=== PATIENT | female | born 1995 | race Caucasian/White ===

== ENCOUNTER 2016-07-23 21:12 | Emergency (ER) | payer BC ==
--- NOTE | 2016-07-23 21:28 | EDM.PDOC ---
ED HPI GENERAL MEDICAL PROBLEM - General Chief Complaint: Abdominal Pain Stated Complaint: STOMACH PAIN Time Seen by Provider: 07/23/16 21:28 Source of Information: Reports: Patient History Limitations: Reports: No Limitations - History of Present Illness INITIAL COMMENTS - FREE TEXT/NARRATIVE: 21 yo F who presents to the ER with severe abdominal pain that started this afternoon and got progressively worse. Rates abdominal pain as 8/10. Pain is mainly on the Lower abdomen and radiates to the back and buttock area. No nausea but vomited once. Describes pain as sharp and constant with no obvious aggravating or relieving factors. No urinary symptoms. Had a bowel movement earlier today. Presented to the ER on account of worsening of symptoms Onset: Today Onset Date: 07/23/16 Onset Time: 16:00 Duration: Hour(s):, Getting Worse Location: Reports: Abdomen, Back Quality: Reports: Ache, Sharp, Stabbing Severity: Severe Associated Symptoms: Reports: Nausea/Vomiting - Related Data Allergies Allergy/AdvReac Type Severity Reaction Status Date / Time nickel Allergy Rash Verified 07/23/16 21:20 Home Meds: Home Meds Ibuprofen 600 mg PO Q6HR PRN #30 tablet 08/23/13 [Rx] Ibuprofen [Advil] 400 mg PO Q6H PRN 08/23/13 [History] DULoxetine HCl [Cymbalta] 20 mg PO DAILY 07/23/16 [History] Hydrocodone/Acetaminophen [Carson 5-325 Tablet] 1 each PO Q6H PRN #20 tablet [Rx] Past Medical History - Past Health History Medical/Surgical History: Denies Medical/Surgical History Other Cardiovascular History: chest pain Social & Family History - Tobacco Use Smoking Status *Q: Current Every Day Smoker Years of Tobacco use: 2 Used Tobacco, but Quit: No Second Hand Smoke Exposure: No - Alcohol Use Days Per Week of Alcohol Use: 0 Number of Drinks Per Day: 1 Total Drinks Per Week: 0 - Recreational Drug Use Recreational Drug Use: No ED ROS GENERAL - Review of Systems Review Of Systems: ROS reveals no pertinent complaints other than HPI. ED EXAM, GI/ABD - Physical Exam Exam: See Below Exam Limited By: No Limitations General Appearance: Alert, WD/WN, No Apparent Distress Eyes: Bilateral: EOMI Ears: Normal External Exam, Normal Canal, Hearing Grossly Normal, Normal TMs Throat/Mouth: Normal Inspection, Normal Lips, Normal Teeth, Normal Oropharynx Head: Atraumatic, Normocephalic Neck: Normal Inspection, Supple, Non-Tender Respiratory/Chest: No Respiratory Distress, Lungs Clear, Normal Breath Sounds, No Accessory Muscle Use Cardiovascular: Normal Peripheral Pulses, Regular Rate, Rhythm, No Edema GI/Abdominal: Normal Bowel Sounds, Soft, No Organomegaly, No Distention, No Abnormal Bruit, Tenderness, Other (Tenderness Lower abdomen and both Flanks) (Female) Exam: Normal External Exam, Normal Speculum Exam Extremities: Normal Inspection, Normal Range of Motion, Non-Tender, Normal Capillary Refill Neurological: Alert, Oriented, CN II-XII Intact, Normal Cognition, Normal Gait Psychiatric: Normal Affect, Normal Mood Skin Exam: Warm, Dry, Intact, Normal Color, No Rash Lymphatic: No Adenopathy Course - Vital Signs Last Recorded V/S: Last Vital Signs Temp 36.8 C 07/23/16 21:24 Pulse 96 07/23/16 21:24 Resp 18 07/23/16 21:24 BP 118/67 07/23/16 21:24 Pulse Ox 96 07/23/16 21:24 - Orders/Labs/Meds Orders: Active Orders 24 hr Category Date Time Status Abdomen Pelvis w Cont [CT] Stat Exams 07/23/16 21:34 Taken LIPASE [REF] Stat Lab 07/23/16 21:50 Received Labs: Laboratory Tests 07/23/16 07/23/16 07/23/16 Range/Units 21:35 21:35 21:50 WBC 11.2 (4.5-12.0) X10-3/uL RBC 4.43 (3.23-5.20) x10(6)uL Hgb 13.7 (11.5-15.5) g/dL Hct 41.0 (30.0-51.3) % MCV 92.5 (80-96) fL MCH 30.9 (27.7-33.6) pg MCHC 33.4 (32.2-35.4) g/dL RDW 12.0 (11.5-15.5) % Plt Count 254 (125-369) X10(3)uL Sodium (135-145) mmol/L Potassium (3.5-5.3) mmol/L Chloride (100-110) mmol/L Carbon Dioxide (23-29) mmol/L BUN (5-20) mg/dL Creatinine (0.6-1.3) mg/dL Est Cr Clr Drug Dosing Estimated GFR (MDRD) (>60) BUN/Creatinine Ratio (9-20) Glucose (80-116) mg/dL Calcium (8.6-10.2) mg/dL Total Bilirubin (0.1-1.3) mg/dL AST (5-27) IU/L ALT (14-26) IU/L Alkaline Phosphatase (56-112) IU/L Total Protein (6.0-8.0) g/dL Albumin (3.5-5.2) g/dL Globulin g/dL Albumin/Globulin Ratio Amylase (28-100) U/L Urine Color Yellow (YELLOW) Urine Appearance Clear (CLEAR) Urine pH 8.0 H (5.0-6.5) Ur Specific [place] 1.015 (1.010-1.025) Urine Protein Negative (NEGATIVE) mg/dL Urine Glucose (UA) Normal (NEGATIVE) mg/dL Urine Ketones Negative (NEGATIVE) mg/dL Urine Occult Blood Negative (NEGATIVE) Urine Nitrite Negative (NEGATIVE) Urine Bilirubin Negative (NEGATIVE) Urine Urobilinogen Normal (NEGATIVE) mg/dL Ur Leukocyte Esterase Negative (NEGATIVE) Urine HCG, Qual Negative (NEGATIVE) 07/23/16 Range/Units 21:50 WBC (4.5-12.0) X10-3/uL RBC (3.23-5.20) x10(6)uL Hgb (11.5-15.5) g/dL Hct (30.0-51.3) % MCV (80-96) fL MCH (27.7-33.6) pg MCHC (32.2-35.4) g/dL RDW (11.5-15.5) % Plt Count (125-369) X10(3)uL Sodium 140 (135-145) mmol/L Potassium 3.6 (3.5-5.3) mmol/L Chloride 107 (100-110) mmol/L Carbon Dioxide 27 (23-29) mmol/L BUN 11 (5-20) mg/dL Creatinine 0.7 (0.6-1.3) mg/dL Est Cr Clr Drug Dosing TNP Estimated GFR (MDRD) > 60 (>60) BUN/Creatinine Ratio 15.7 (9-20) Glucose 87 (80-116) mg/dL Calcium 9.3 (8.6-10.2) mg/dL Total Bilirubin 0.5 (0.1-1.3) mg/dL AST 22 D (5-27) IU/L ALT 29 H D (14-26) IU/L Alkaline Phosphatase 57 (56-112) IU/L Total Protein 7.2 (6.0-8.0) g/dL Albumin 4.4 (3.5-5.2) g/dL Globulin 2.8 g/dL Albumin/Globulin Ratio 1.6 Amylase 65 (28-100) U/L Urine Color (YELLOW) Urine Appearance (CLEAR) Urine pH (5.0-6.5) Ur Specific [place] (1.010-1.025) Urine Protein (NEGATIVE) mg/dL Urine Glucose (UA) (NEGATIVE) mg/dL Urine Ketones (NEGATIVE) mg/dL Urine Occult Blood (NEGATIVE) Urine Nitrite (NEGATIVE) Urine Bilirubin (NEGATIVE) Urine Urobilinogen (NEGATIVE) mg/dL Ur Leukocyte Esterase (NEGATIVE) Urine HCG, Qual (NEGATIVE) Meds: Medications Discontinued Medications Generic Name Dose Route Start Last Admin Trade Name Freq PRN Reason Stop Dose Admin Sodium Chloride 1,000 mls @ 1,000 mls/hr 07/23/16 21:35 07/23/16 22:01 Normal Saline IV 07/23/16 22:34 1,000 mls/hr .BOLUS ONE Administration Iopamidol 75 ml 07/23/16 22:36 07/23/16 23:30 Isovue-370 (76%) IV 07/23/16 22:37 67 ml ASDIRECTED ONE Administration Morphine Sulfate 4 mg 07/23/16 21:37 07/23/16 22:07 Morphine IVPUSH 07/23/16 21:38 4 mg ONETIME ONE Administration Ondansetron HCl 4 mg 07/23/16 21:36 07/23/16 22:07 Zofran IVPUSH 07/23/16 21:37 4 mg ONETIME ONE Administration Departure - Departure Time of Disposition: 00:22 Disposition: Home, Self-Care 01 Clinical Impression: Abdominal pain Qualifiers: Abdominal location: lower abdomen, unspecified Qualified Code(s): R10.30 - Lower abdominal pain, unspecified - Discharge Information Prescriptions: Hydrocodone/Acetaminophen [Carson 5-325 Tablet] 1 each PO Q6H PRN #20 tablet PRN Reason: Pain Instructions: Abdominal Pain, Adult, [id number] Referrals: PCP,Not In Area [Primary Care Provider] - Forms: ED Department Discharge Additional Instructions: Follow with PCP Delfina for pain Return if ymptoms worsen Call your Physician or Return to Emergency Department if: * Your condition worsens in any way. * You develop fever greater than 100.4. * You have vomitting that does not stop with medications. * You have pain that is not controlled with medications. - Problem List Review Problem List Initiated/Reviewed/Updated: Yes - My Orders Last 24 Hours: My Active Orders 07/23/16 21:34 Abdomen Pelvis w Cont [CT] Stat 07/23/16 21:50 LIPASE [REF] Stat - Assessment/Plan Last 24 Hours: My Active Orders 07/23/16 21:34 Abdomen Pelvis w Cont [CT] Stat 07/23/16 21:50 LIPASE [REF] Stat
[2016-07-23] MEDS ORDERED: Sodium Chloride 0.9% 1,000 ML IV ONE (21:35)
[2016-07-23] MEDS ORDERED: Ondansetron 4 MG/2 ML SDV IVPUSH ONE (21:36)
[2016-07-23] MEDS ORDERED: Morphine 4 MG/ML Syringe IVPUSH ONE (21:37)
[2016-07-23] MEDS ORDERED: Iopamidol 755 Mg/ML 75 ML Bottle IV ONE (22:36)
[2016-07-24 00:44] VITALS: BP 120/68
== END 2016-07-24 00:35 | disposition home or self-care (01) ==
LOC: FB.ED 21:12
DX: R10.30 Lower abdominal pain, unspecified (principal); F17.200 Nicotine dependence, unspecified, uncomplicated; Z79.899 Other long term (current) drug therapy
CPT/HCPCS: 36415; 74177; 80053; 81003; 81025; 82150; 83690; 85027; 96361; 96374; 96375; 99284; J2270; J2405; J7040; Q9967

== ENCOUNTER 2016-09-12 20:29 | Emergency (ER) | payer BC ==
[2016-09-12 20:46] VITALS: BP 126/76
--- NOTE | 2016-09-12 20:53 | EDM.PDOC ---
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 She had an pelvic US today and was told "there is no baby". LNMP was 6 weeks ago. No N/V/D, no dizziness, no acute medical issues. No vaginal bleed/spotting. Onset: Today Onset Date: 09/12/16 Onset Time: 08:00 Duration: Day(s):, Other (no phsical complains) Location: Reports: Pelvis - Related Data Allergies Allergy/AdvReac Type Severity Reaction Status Date / Time nickel Allergy Rash Verified 09/12/16 20:37 Home Meds: Home Meds Ibuprofen 600 mg PO Q6HR PRN #30 tablet 08/23/13 [Rx] Ibuprofen [Advil] 400 mg PO Q6H PRN 08/23/13 [History] Past Medical History - Past Health History Medical/Surgical History: Denies Medical/Surgical History Other Cardiovascular History: chest pain Social & Family History - Tobacco Use Smoking Status *Q: Current Every Day Smoker Years of Tobacco use: 2 Packs/Tins Daily: 1 Used Tobacco, but Quit: No Second Hand Smoke Exposure: Yes - Caffeine Use Caffeine Use: Reports: None - Alcohol Use Days Per Week of Alcohol Use: 0 Number of Drinks Per Day: 1 Total Drinks Per Week: 0 - Recreational Drug Use Recreational Drug Use: No ED ROS GENERAL - Review of Systems Review Of Systems: See Below Constitutional: Reports: No Symptoms HEENT: Reports: No Symptoms Respiratory: Reports: No Symptoms Cardiovascular: Reports: No Symptoms Endocrine: Reports: No Symptoms GI/Abdominal: Reports: No Symptoms : Reports: No Symptoms Musculoskeletal: Reports: No Symptoms Skin: Reports: No Symptoms Neurological: Reports: No Symptoms Psychiatric: Reports: No Symptoms Hematologic/Lymphatic: Reports: No Symptoms Immunologic: Reports: No Symptoms ED EXAM - Physical Exam Exam: See Below Exam Limited By: No Limitations General Appearance: Alert, WD/WN, No Apparent Distress Eye Exam: Bilateral Eye: Normal Inspection Ears: Normal External Exam Nose: Normal Inspection Throat/Mouth: Normal Inspection, Normal Lips Head: Atraumatic, Normocephalic Neck: Normal Inspection, Supple, Non-Tender Respiratory/Chest: No Respiratory Distress, Lungs Clear, Normal Breath Sounds Cardiovascular: Normal Peripheral Pulses, Regular Rate, Rhythm, No Edema GI/Abdominal Exam: Normal Bowel Sounds, Soft, Non-Tender, No Organomegaly Rectal Exam: Deferred (Female) Exam: Other (not indicated, no symptoms) Back Exam: Normal Inspection, Full Range of Motion Extremities: Normal Inspection, Normal Range of Motion Neurological: Alert, Oriented, CN II-XII Intact, Normal Cognition Psychiatric: Normal Affect, Normal Mood Skin Exam: Warm, Dry, Intact, Normal Color, No Rash Lymphatic: No Adenopathy Course - Vital Signs Text/Narrative:: 21 years old w f [id number] came to the ed because her Urine test was twice positive - clinc in [facility]. She had an pelvic US today and was told "there is no baby". LNMP was 6 weeks ago. No N/V/D, no dizziness, no acute medical issues. PE: WNWD w f NAD Labs: HCG test 3949 Impression: Pos prenancy test Plan: pt was d/c'd with instructions Last Recorded V/S: Last Vital Signs Temp 36.2 C 09/12/16 20:38 Pulse 86 09/12/16 20:38 Resp 18 09/12/16 20:38 BP 126/76 09/12/16 20:38 Pulse Ox 100 09/12/16 20:38 - Orders/Labs/Meds Labs: Laboratory Tests 09/12/16 Range/Units 20:45 HCG, Quant 3935 (2.0 - ) mIU/mL Departure - Departure Time of Disposition: 21:46 Disposition: Home, Self-Care 01 Condition: Good Clinical Impression: test performed, confirmed - Discharge Information Referrals: Keyur Lopez MD [Primary Care Provider] - Forms: ED Department Discharge Additional Instructions: Please repeat the quantitative HCG in 4 days, please come back if any pain, bleeding etc occurs.
== END 2016-09-12 21:52 | disposition home or self-care (01) ==
LOC: FB.ED 20:29
DX: Z32.01 Encounter for pregnancy test, result positive (principal); F17.210 Nicotine dependence, cigarettes, uncomplicated
CPT/HCPCS: 36415; 84702; 99282

== ENCOUNTER 2016-12-14 04:39 | Emergency (ER) | payer BC ==
--- NOTE | 2016-12-14 05:37 | EDM.PDOC ---
ED HPI GENERAL MEDICAL PROBLEM - General Chief Complaint: ENT Problem Stated Complaint: SORE THROAT Time Seen by Provider: 12/14/16 04:40 Source of Information: Reports: Patient History Limitations: Reports: No Limitations - History of Present Illness INITIAL COMMENTS - FREE TEXT/NARRATIVE: 21 years old w f -5 months -came to the ed because of a sore throat since . Pt still smokes (little). No F/C/N/V. She has nasal congestion as well. No other acute medical issues. BP 106/61 Pulse 94 Temp 98.2 RR 16 Pulse ox 100% Onset Date: 12/11/16 Onset Time: 07:00 Duration: Day(s): Location: Reports: Face Quality: Reports: Other (sore throat) Severity: Mild Improves with: Reports: Heat Therapy Worsens with: Reports: Cold Therapy Associated Symptoms: Reports: Other (running nose) Treatments MANAGER PEST: Reports: Acetaminophen throat and neck Pain Score (Numeric/FACES): 9 - Related Data Allergies Allergy/AdvReac Type Severity Reaction Status Date / Time nickel Allergy Rash Verified 12/14/16 04:49 Home Meds: Home Meds Amoxicillin/Potassium Clav [Augmentin 875-125 Tablet] 1 each PO BID #20 tablet 12/14/16 [Rx] Past Medical History - Past Health History Medical/Surgical History: Denies Medical/Surgical History Other Cardiovascular History: 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: Psychiatric History: Reports: Anxiety, Depression Social & Family History - Family History Family Medical History: Noncontributory - Tobacco Use Smoking Status *Q: Current Every Day Smoker Years of Tobacco use: 6 Packs/Tins Daily: 0.5 Used Tobacco, but Quit: No Second Hand Smoke Exposure: Yes - Caffeine Use Caffeine Use: Reports: Soda - Alcohol Use Days Per Week of Alcohol Use: 0 Number of Drinks Per Day: 1 Total Drinks Per Week: 0 - Recreational Drug Use Recreational Drug Use: No ED ROS ENT - Review of Systems Review Of Systems: See Below Constitutional: Reports: No Symptoms HEENT: Reports: Throat Pain, Other (nasal congestion) Respiratory: Reports: No Symptoms Cardiovascular: Reports: No Symptoms Endocrine: Reports: No Symptoms GI/Abdominal: Reports: No Symptoms : Reports: No Symptoms Musculoskeletal: Reports: No Symptoms Skin: Reports: No Symptoms Neurological: Reports: No Symptoms Psychiatric: Reports: No Symptoms Hematologic/Lymphatic: Reports: No Symptoms Immunologic: Reports: No Symptoms ED EXAM, ENT - Physical Exam Exam: See Below Exam Limited By: No Limitations General Appearance: Alert, WD/WN, No Apparent Distress Eye Exam: Bilateral Eye: Normal Inspection Ears: Normal External Exam Nose: Clear Rhinorrhea Mouth/Throat: Throat Pain, Tonsillar Erythema Head: Atraumatic, Normocephalic Neck: Normal Inspection, Supple, Non-Tender, Full Range of Motion Respiratory/Chest: No Respiratory Distress, Lungs Clear Cardiovascular: Normal Peripheral Pulses, Regular Rate, Rhythm, No Edema, No Gallop GI/Abdominal: Normal Bowel Sounds, Soft, Non-Tender (Female) Exam: Deferred Rectal (Female) Exam: Deferred Back: Normal Inspection Extremities: Normal Inspection, Normal Range of Motion Neurological: Alert, Oriented, CN II-XII Intact, Normal Cognition, Normal Gait Psychiatric: Normal Affect Skin: Warm, Dry, Intact, Normal Color Lymphatic: No Adenopathy Course - Vital Signs Text/Narrative:: 21 years old w f -5 months -came to the ed because of a sore throat since . Pt still smokes (little). No F/C/N/V. She has nasal congestion as well. No other acute medical issues. BP 106/61 Pulse 94 Temp 98.2 RR 16 Pulse ox 100% PE: Pharyngitis, Airway open Labs: Strep pharyngitis test neg. Cx pendinh Impression: Pharyngitis, Strep presumed Tx: Augmentin Plan: D/C with instructions Last Recorded V/S: Last Vital Signs Temp 36.8 C 12/14/16 05:52 Pulse 86 12/14/16 05:52 Resp 16 12/14/16 05:52 BP 105/72 12/14/16 05:52 Pulse Ox 100 12/14/16 05:52 - Orders/Labs/Meds Orders: Active Orders 24 hr Category Date Time Status CULTURE STREP A CONFIRMATION [] Stat Lab 12/14/16 04:55 Results STREP SCRN A RAPID W CULT CONF [] Stat Lab 12/14/16 04:55 Results Meds: Medications Discontinued Medications Generic Name Dose Route Start Last Admin Trade Name Freq PRN Reason Stop Dose Admin Amoxicillin/Clavulanate Potassium 1 tab 12/14/16 05:40 12/14/16 05:50 Augmentin 875 Mg/125 Mg PO 12/14/16 05:41 1 tab ONETIME ONE Administration Departure - Departure Time of Disposition: 05:37 Disposition: Home, Self-Care 01 Condition: Good Clinical Impression: Nasal congestion, Strep pharyngitis Qualifiers: Weeks of gestation: 20 weeks Qualified Code(s): Z3A.20 - 20 weeks gestation of - Discharge Information Prescriptions: Amoxicillin/Potassium Clav [Augmentin 875-125 Tablet] 1 each PO BID #20 tablet Instructions: Sore Throat, [id number] Referrals: Keyur Lopez MD [Primary Care Provider] - Forms: ED Department Discharge Additional Instructions: Presumed Strep Pharyngitis, Lab results are pending. Please apply salt water gurgling, Tylenol 650 mg every 4 hours, please drink warm milk, tea, water for next 4-5 days only. Please no coffee. Please do not use any tobacco. Please use Afrin for nasal congestion, please f/u, come back if your symptoms get worse acutely. - My Orders Last 24 Hours: My Active Orders 12/14/16 04:55 CULTURE STREP A CONFIRMATION [] Stat STREP SCRN A RAPID W CULT CONF [] Stat - Assessment/Plan Last 24 Hours: My Active Orders 12/14/16 04:55 CULTURE STREP A CONFIRMATION [] Stat STREP SCRN A RAPID W CULT CONF [] Stat
[2016-12-14] MEDS ORDERED: Amoxicillin/Clavulanate K 875-125 MG Tab PO ONE (05:40)
[2016-12-14 05:54] VITALS: BP 105/72
== END 2016-12-14 05:53 | disposition home or self-care (01) ==
LOC: FB.ED 04:39
DX: O99.512 Diseases of the respiratory system complicating pregnancy, second trimester (principal); J02.0 Streptococcal pharyngitis; O99.332 Smoking (tobacco) complicating pregnancy, second trimester; F17.210 Nicotine dependence, cigarettes, uncomplicated; Z3A.20 20 weeks gestation of pregnancy
CPT/HCPCS: 87081; 87430; 99283; A9270

== ENCOUNTER 2017-05-11 06:35 | Inpatient (IN) | payer BC ==
[2017-05-11] MEDS ORDERED: Misoprostol 25 MCG (1/4 of 100 MCG) Tab ONE (07:25)
[2017-05-11] MEDS ORDERED: Misoprostol 25 MCG (1/4 of 100 MCG) Tab VAG ONE (07:29)
[2017-05-11] MEDS ORDERED: Ampicillin 2 GM in Sodium Chloride 0.9% 100 ML IV ONE (11:13)
[2017-05-11] MEDS ORDERED: Naloxone 0.4 MG/ML SDV ONE (13:48)
[2017-05-11] MEDS ORDERED: ePHEDrine 50 MG/ML SDV ONE (13:49)
[2017-05-11] MEDS ORDERED: ePHEDrine 50 MG/ML SDV IVPUSH PRN (14:48)
[2017-05-11] MEDS ORDERED: hydrOXYzine HCl 50 MG/ML SDV IM PRN ×2 (14:48)
[2017-05-11] MEDS ORDERED: Naloxone 0.4 MG/ML SDV IVPUSH PRN (14:48)
[2017-05-11] MEDS ORDERED: Promethazine 25 MG/ML SDV IV PRN (14:48)
[2017-05-11] MEDS ORDERED: diphenhydrAMINE 50 MG/ML SDV IVPUSH PRN (14:48)
[2017-05-11] MEDS ORDERED: Naloxone 0.4 MG in Sodium Chloride 0.9% 100 ML IV PRN (14:48)
[2017-05-11] MEDS ORDERED: Ondansetron 4 MG/2 ML SDV IVPUSH PRN (14:49)
[2017-05-11] MEDS ORDERED: Lactated Ringers 1,000 ML IV SCH (15:00)
--- NOTE | 2017-05-11 19:33 | PCM.LDHP ---
L&D History of Present Illness - General Date of Service: 05/11/17 Admit Problem/Dx: Patient Status Order with Admit Dx/Problem 05/11/17 07:00 Admission Status [Patient Status] [ADT] Routine Admission Diagnosis/Problem Admission Diagnosis/Problem -related examination Source of Information: Patient, Old Records History Limitations: Reports: No Limitations - History of Present Illness Introduction:: Michelle is 22yrs.Admitted for induction of labor due to postdates. She is Group B Positive. H/o Operative vaginal delivery in her previous delivery in 2012.SAB x1. H/o Tobacco abuse. - Related Data Allergies/Adverse Reactions: Allergies Allergy/AdvReac Type Severity Reaction Status Date / Time nickel Allergy Rash Verified 05/11/17 12:29 Home Medications: Home Meds PNV95/Ferrous Fumarate/FA [ Tablet] 1 each PO DAILY 05/11/17 [History] Past Medical History - Past Health History Medical/Surgical History: Denies Medical/Surgical History Other Cardiovascular History: chest pain Respiratory History: Reports: Other (See Below) Other Respiratory History: smoker. 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 Psychiatric History: Reports: Anxiety, Depression Social & Family History - Family History Family Medical History: Noncontributory - Tobacco Use Smoking Status *Q: Current Every Day Smoker Years of Tobacco use: 6 Packs/Tins Daily: 0.5 Used Tobacco, but Quit: No Second Hand Smoke Exposure: No - Caffeine Use Caffeine Use: Reports: None - Alcohol Use Days Per Week of Alcohol Use: 0 Number of Drinks Per Day: 1 Total Drinks Per Week: 0 - Recreational Drug Use Recreational Drug Use: No H&P Review of Systems - Review of Systems: Review Of Systems: ROS reveals no pertinent complaints other than HPI. L&D Exam - Exam Exam: See Below - Vital Signs Vital Signs: Last Vital Signs Temp 98.3 F 05/11/17 18:14 Pulse 74 05/11/17 18:14 Resp 18 05/11/17 18:14 BP 125/57 L 05/11/17 18:14 Pulse Ox 100 05/11/17 18:14 Weight: 72.575 kg - OB Specific Contraction Duration (sec): 80-90 Contraction Frequency (min): 3-5 Contraction Intensity: Moderate Movement: Active Heart Rate (FHR) Variability: Moderate (6-25 bmp) - Ann Score Ann Score Cervix Position: Midposition Ann Score Consistency: Soft Ann Score Dilation: 1-2 cm Ann Score Infant's Station: -1 ,0 - Exam General: Alert, Oriented HEENT: PERRLA, Conjunctiva Clear, EACs Clear, EOMI, Hearing Intact, Mucosa Moist & [place], Nares Patent, Normal Nasal Septum, Posterior Pharynx Clear, TMs Clear Neck: Supple, Trachea Midline Lungs: Clear to Auscultation, Normal Respiratory Effort Cardiovascular: Regular Rate, Regular Rhythm GI/Abdominal Exam: Normal Bowel Sounds, Soft, Non-Tender, No Organomegaly, No Distention, No Abnormal Bruit, No Mass, Pelvis Stable Rectal Exam: Normal Exam, Normal Rectal Tone Genitourinary: Normal external exam, Normal bimanual exam, Normal speculum exam Back Exam: Normal Inspection, Full Range of Motion Extremities: Normal Inspection, Normal Range of Motion, Non-Tender, No Pedal Edema, Normal Capillary Refill Skin: Warm, Dry, Intact Neurological: Cranial Nerves Intact, Reflexes Equal Bilateral Psychiatric: Alert, Normal Affect, Normal Mood - Problem List (1) Elective induction of labor planned SNOMED Code(s): 759606513 ICD Code: SCQ7867 - Status: Acute Current Visit: Yes (2) Hx of delivery by vacuum extraction, currently SNOMED Code(s): 646384393 ICD Code: O09.299 - SUPRVSN OF PREG W POOR REPRODCTV OR OBSTET HISTORY, UNSP TRI Status: Acute Current Visit: Yes (3) Group beta Strep positive SNOMED Code(s): 0629810112790, 3474498218926 ICD Code: B95.1 - STREPTOCOCCUS, GROUP B, CAUSING DISEASES CLASSD ELSWHR Status: Acute Current Visit: Yes (4) SNOMED Code(s): 58085172 ICD Code: Z34.90 - ENCNTR FOR SUPRVSN OF NORMAL , UNSP, UNSP TRIMESTER Status: Acute Current Visit: No Qualifiers: Weeks of gestation: 40 weeks Qualified Code(s): Z3A.40 - 40 weeks gestation of (5) Tobacco abuse SNOMED Code(s): 998915041 ICD Code: Z72.0 - TOBACCO USE Status: Chronic Current Visit: Yes (6) Anxiety and depression SNOMED Code(s): 317858436 ICD Code: F41.9 - ANXIETY DISORDER, UNSPECIFIED; F32.9 - MAJOR DEPRESSIVE DISORDER, SINGLE EPISODE, UNSPECIFIED Status: Chronic Current Visit: Yes Problem List Initiated/Reviewed/Updated: Yes Orders Last 24hrs: Active Orders 24 hr Category Date Time Status Admission Status [Patient Status] [ADT] Routine ADT 05/11/17 07:00 Active Communication Order [RC] ASDIRECTED Care 05/11/17 17:38 Active Communication Order [RC] ASDIRECTED Care 05/11/17 17:38 Active Communication Order [RC] ASDIRECTED Care 05/11/17 17:38 Active Insert Urinary Catheter [OM.PC] Q24H Care 05/11/17 17:00 Ordered Notify Provider [RC] PRN Care 05/11/17 17:38 Active Notify Provider [RC] STAT Care 05/11/17 17:38 Active Urinary Catheter Assessment [RC] QSHIFT Care 05/11/17 18:16 Active Vital Signs [RC] PER UNIT ROUTINE Care 05/11/17 17:38 Active Ampicillin 1,000 mg Med 05/11/17 15:30 Active Sodium Chloride 0.9% [Normal Saline] 50 ml IV Q4H Lactated Ringers [Ringers, Lactated] 1,000 ml Med 05/11/17 15:00 Active IV ASDIRECTED Naloxone [Narcan] Med 05/11/17 14:48 Active 0.1 mg IVPUSH ASDIRECTED PRN Naloxone [Narcan] 0.4 mg Med 05/11/17 14:48 Active Sodium Chloride 0.9% [Normal Saline] 100 ml IV ASDIRECTED Ondansetron [Zofran] Med 05/11/17 14:49 Active 4 mg IVPUSH Q6H PRN Oxytocin/Normal Saline [Pitocin in NS 20 Units/1,000 ML Med 05/11/17 17:45 Active ] 20 unit in 1,000 ml IV TITRATE Promethazine [Phenergan] Med 05/11/17 14:48 Active 6.25 - 12.5 mg IV Q4H PRN diphenhydrAMINE [Benadryl] Med 05/11/17 14:48 Active 25 mg IVPUSH ASDIRECTED PRN ePHEDrine [ePHEDrine Sulfate] Med 05/11/17 14:48 Active 5 mg IVPUSH ASDIRECTED PRN hydrOXYzine HCl [Vistaril] Med 05/11/17 14:48 Active 0 mg IM Q4H PRN hydrOXYzine HCl [Vistaril] Med 05/11/17 14:48 Active 0 mg IM Q6H PRN Medication Orders Diphenhydramine HCl (Benadryl) 25 mg IVPUSH ASDIRECTED PRN PRN Reason: PRURITUS Ephedrine Sulfate (Ephedrine Sulfate) 5 mg IVPUSH ASDIRECTED PRN PRN Reason: HYPOTENSION Hydroxyzine HCl (Vistaril) 0 mg IM Q6H PRN PRN Reason: PRURITIS Hydroxyzine HCl (Vistaril) 0 mg IM Q4H PRN PRN Reason: N/V Ampicillin Sodium 1,000 mg/ (Sodium Chloride) 50 mls @ 100 mls/hr IV Q4H CHARO Last Admin: 05/11/17 15:34 Dose: 100 mls/hr Naloxone HCl 0.4 mg/ Sodium (Chloride) 101 mls @ 25 mls/hr IV ASDIRECTED PRN PRN Reason: PER ORDER OF ANESTHESIA Lactated Ringer's (Ringers, Lactated) 1,000 mls @ 125 mls/hr IV ASDIRECTED CHARO Oxytocin/Sodium Chloride (Pitocin In Ns 20 Units/1,000 Ml) 20 unit in 1,000 mls @ 6 mls/hr IV TITRATE CHARO; Protocol Last Admin: 05/11/17 17:59 Dose: 1 munits/min, 6 mls/hr Naloxone HCl (Narcan) 0.1 mg IVPUSH ASDIRECTED PRN PRN Reason: RESPIRATORY STATUS Ondansetron HCl (Zofran) 4 mg IVPUSH Q6H PRN PRN Reason: NAUSEA/VOMITING Promethazine HCl (Phenergan) 6.25 - 12.5 mg IV Q4H PRN PRN Reason: NAUSEA AND VOMITING Assessment/Plan Comment:: Continue induction by Pitocin. Continue Group B chemoprophylaxis.
[2017-05-11] MEDS ORDERED: Acetaminophen/HYDROcodone 325-5 MG Tab PO PRN (21:32)
[2017-05-12 00:09] VITALS: BP 129/68
[2017-05-12] MEDS: Ibuprofen 800 MG Tab PO PRN ×4 (02:45→16:34)
--- NOTE | 2017-05-12 08:53 | DEL ---
DATE OF DELIVERY: 05/11/2017 PREOPERATIVE DIAGNOSES: 40 weeks and 3 days intrauterine , here for induction of labor. POSTOPERATIVE DIAGNOSES: 40 weeks and 3 days intrauterine , here for induction of labor with delivery of a viable female infant at 2120 hours, 6 pounds, 13 ounces, scores of 9 and 9. PROCEDURE PERFORMED: Spontaneous vaginal delivery. ANESTHESIA: Epidural. INDICATIONS: This is a 22-year-old female, G3, P2 at 40 weeks and 3 days who was admitted for induction of labor. Please see history and physical for details. labs included negative HIV, rubella, VDRL, hepatitis B, but group B positive. PROCEDURE DETAILS: The patient was noted to be complete and pushing and was placed in the dorsal lithotomy position, prepped and draped in the usual sterile fashion for a vaginal delivery. The patient was noted to have epidural anesthesia. She was asked to push and the head delivered spontaneously in ROT position over an intact perineum. Nuchal cord x2 was encountered which was reduced and the baby was delivered as necessary. The infant was noted to have spontaneous cry and movement of all 4 extremities. The cord was cut and clamped x2 after about a minute, and the baby was placed [id number] on the maternal abdomen and chest. Then the baby was given to the waiting nursing personnel. Cord blood was obtained. The placenta was delivered intact by traction and the uterus was explored. 20 units of Pitocin were run through the IV as a bolus. Examination of the cervix and vaginal vault did not reveal any lacerations. The perineum showed a small periurethral laceration, first degree, that did not need any repair. The patient tolerated the procedure well and is recovered in Labor and Delivery with the infant. All the sponge and needle counts were correct and I, (Dr. Dean), was present throughout the entire procedure. Estimated blood loss was about 200 mL. /[id number] SEN/BJ
--- NOTE | 2017-05-12 13:37 | PN ---
DATE SEEN: 05/12/2017 SUBJECTIVE: Michelle Jimenez is a 22-year-old 3, para 2, AB1 female, 1 day . Up, ambulating, doing well. Minimal lochia, minimal flow. Postoperative hemoglobin 11.2. PHYSICAL EXAMINATION: Uterus is U-2, tone satisfactory. Perineum intact. ASSESSMENT: day 1, no problems. PLAN: Close observation. Intervention and care. Intervention as appropriate, treatment. Likely discharge home this evening. /[id number] KAREN/BJ
== END 2017-05-12 22:25 | disposition home or self-care (01) | DRG 560 ==
LOC: FB.OB 06:35
PROVIDERS: ADMIT Family Medicine; ATTEND Family Medicine
PROC: 10E0XZZ Delivery of Products of Conception, External Approach (ICD-10-PCS; principal; 2017-05-11)
PROC: 3E033VJ Introduction of Other Hormone into Peripheral Vein, Percutaneous Approach (ICD-10-PCS; 2017-05-11)
PROC: 6A550ZT Pheresis of Cord Blood Stem Cells, Single (ICD-10-PCS; 2017-05-11)
DX: O48.0 Post-term pregnancy (principal); O99.344 Other mental disorders complicating childbirth; F41.8 Other specified anxiety disorders; O99.824 Streptococcus B carrier state complicating childbirth; O69.81X0 Labor and delivery complicated by cord around neck, without compression, not applicable or unspecified; Z3A.40 40 weeks gestation of pregnancy; Z37.0 Single live birth; O71.82 Other specified trauma to perineum and vulva; Z87.891 Personal history of nicotine dependence; Z91.048 Other nonmedicinal substance allergy status
CPT/HCPCS: 36415; 51701; 59409; 85025; A9270-GY; J0290; J2405; J2590; J7030; J7050; J7120

== ENCOUNTER 2017-10-07 21:28 | Emergency (ER) | payer BC ==
--- NOTE | 2017-10-07 22:14 | EDM.PDOC ---
ED HPI GENERAL MEDICAL PROBLEM - General Stated Complaint: DIZZYNESS Time Seen by Provider: 10/07/17 22:13 Source of Information: Reports: Patient History Limitations: Reports: No Limitations - History of Present Illness INITIAL COMMENTS - FREE TEXT/NARRATIVE: Michelle complains of having dizziness, weakness & tingling of the legs a mild bitemporal headache and nausea and vomiting symptoms sudden onset about 2 hours ago. Denies urinary symptoms pain chest pain shortness of breath. headache Pain Score (Numeric/FACES): 5 - Related Data Allergies Allergy/AdvReac Type Severity Reaction Status Date / Time nickel Allergy Rash Verified 10/07/17 22:26 Home Meds: Home Meds NK [No Known Home Meds] 10/07/17 [History] Past Medical History - Past Health History Medical/Surgical History: Denies Medical/Surgical History Other Cardiovascular History: chest pain Respiratory History: Reports: Other (See Below) Other Respiratory History: smoker. 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 Psychiatric History: Reports: Anxiety, Depression Social & Family History - Family History Family Medical History: Noncontributory - Caffeine Use Caffeine Use: Reports: None ED ROS GENERAL - Review of Systems Review Of Systems: ROS reveals no pertinent complaints other than HPI. ED EXAM, DIZZINESS - Physical Exam Exam: See Below Exam Limited By: No Limitations General Appearance: Alert Ears: Normal External Exam Nose: Normal Inspection Throat/Mouth: Normal Inspection Head Exam: Atraumatic Vertigo: reversible, short duration Neck: Normal Inspection Respiratory/Chest: No Respiratory Distress, Lungs Clear, Normal Breath Sounds, No Accessory Muscle Use, Chest Non-Tender Course - Vital Signs Text/Narrative:: Feels better laying down.Declined shots Last Recorded V/S: Last Vital Signs Temp 98.3 F 10/07/17 21:28 Pulse 69 10/07/17 21:28 Resp 20 10/07/17 21:28 BP 132/67 10/07/17 21:28 Pulse Ox 100 10/07/17 21:28 - Orders/Labs/Meds Labs: Laboratory Tests 10/07/17 10/07/17 Range/Units 22:26 22:26 WBC 8.3 (4.5-12.0) X10-3/uL RBC 4.92 (3.23-5.20) x10(6)uL Hgb 14.9 D (11.5-15.5) g/dL Hct 44.4 D (30.0-51.3) % MCV 90.2 (80-96) fL MCH 30.2 (27.7-33.6) pg MCHC 33.5 (32.2-35.4) g/dL RDW 12.0 (11.5-15.5) % Plt Count 280 (125-369) X10(3)uL MPV 6.7 L (7.4-10.4) fL Neut % (Auto) 54.1 (46-82) % Lymph % (Auto) 34.8 (13-37) % [place] % (Auto) 6.3 (4-12) % Eos % (Auto) 4 (1.0-5.0) % Baso % (Auto) 1 (0-2) % Neut # (Auto) 4.6 (1.6-8.3) # Lymph # (Auto) 2.9 (0.6-5.0) # [place] # (Auto) 0.5 (0.0-1.3) # Eos # (Auto) 0.3 (0.0-0.8) # Baso # (Auto) 0.0 (0.0-0.2) # Sodium 142 (135-145) mmol/L Potassium 3.5 (3.5-5.3) mmol/L Chloride 105 (100-110) mmol/L Carbon Dioxide 29 (21-32) mmol/L BUN 6 L (7-18) mg/dL Creatinine 0.7 (0.55-1.02) mg/dL Est Cr Clr Drug Dosing 107.01 mL/min Estimated GFR (MDRD) > 60 (>60) BUN/Creatinine Ratio 8.6 L (9-20) Glucose 92 (80-116) mg/dL Calcium 9.0 (8.6-10.2) mg/dL Meds: Medications Discontinued Medications Generic Name Dose Route Start Last Admin Trade Name Freq PRN Reason Stop Dose Admin Hydroxyzine HCl 100 mg 10/07/17 22:11 10/07/17 22:30 Vistaril IM 10/07/17 22:12 Not Given ONETIME ONE Ketorolac Tromethamine 60 mg 10/07/17 22:11 10/07/17 22:30 Toradol IM 10/07/17 22:12 Not Given ONETIME ONE Departure - Departure Time of Disposition: 23:04 Disposition: Home, Self-Care 01 Clinical Impression: Vertigo, Headache - Discharge Information Referrals: Keyur Lopez MD [Primary Care Provider] - - Problem List & Annotations (1) Headache SNOMED Code(s): 92672232 Code(s): R51 - HEADACHE Status: Acute Current Visit: Yes Qualifiers: Headache type: tension-type (2) Vertigo SNOMED Code(s): 147190700 Code(s): R42 - DIZZINESS AND GIDDINESS Status: Acute Current Visit: Yes (3) Anxiety and depression SNOMED Code(s): 08958197 Code(s): F41.9 - ANXIETY DISORDER, UNSPECIFIED; F32.9 - MAJOR DEPRESSIVE DISORDER, SINGLE EPISODE, UNSPECIFIED Status: Chronic Current Visit: No - Problem List Review Problem List Initiated/Reviewed/Updated: Yes - Assessment/Plan Assessment:: DC home on Meclizine. Rest. Follow with PCP tomorrow if necessary
[2017-10-07] MEDS: Ketorolac 60 MG/2 ML SDV IM ONE ×2 (22:18→22:30)
[2017-10-07] MEDS: hydrOXYzine HCl 50 MG/ML SDV IM ONE ×2 (22:19→22:30)
[2017-10-07] MEDS ORDERED: Meclizine 25 MG Tab PO ONE (23:04)
[2017-10-07 23:16] VITALS: BP 137/77
== END 2017-10-07 23:14 | disposition home or self-care (01) ==
LOC: FB.ED 21:28
DX: R42 Dizziness and giddiness (principal); R51 Headache; Z91.09 Other allergy status, other than to drugs and biological substances
CPT/HCPCS: 36415; 80048; 85025; 99283; A9270-GY; J1885; J3410

== ENCOUNTER 2018-02-16 21:10 | Emergency (ER) | payer OTHER, BC ==
[2018-02-16 22:40] VITALS: BP 118/68
--- NOTE | 2018-02-18 14:21 | EDM.PDOC ---
ED HPI GENERAL MEDICAL PROBLEM - General Chief Complaint: Upper Extremity Injury/Pain Stated Complaint: RT HAND INJURY Time Seen by Provider: 02/16/18 21:20 Source of Information: Reports: Patient History Limitations: Reports: No Limitations - History of Present Illness INITIAL COMMENTS - FREE TEXT/NARRATIVE: 23 yr employee of [email or web address] 1/2 hr ago caught her right hand /wrist in a door and has pain in her hand. - Related Data Allergies Allergy/AdvReac Type Severity Reaction Status Date / Time nickel Allergy Rash Verified 02/16/18 23:36 Home Meds: Home Meds NK [No Known Home Meds] 10/07/17 [History] Past Medical History - Past Health History Medical/Surgical History: Denies Medical/Surgical History Other Cardiovascular History: Hx chest pain. Respiratory History: Reports: Other (See Below) Other Respiratory History: Smoker. 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 Psychiatric History: Reports: Anxiety, Depression - Past Surgical History HEENT Surgical History: Reports: Other (See Below) Other HEENT Surgeries/Procedures: [place] teeth extraction. Social & Family History - Family History Family Medical History: Noncontributory - Tobacco Use Smoking Status *Q: Current Every Day Smoker Years of Tobacco use: 8 Packs/Tins Daily: 0.5 - Caffeine Use Caffeine Use: Reports: None - Alcohol Use Days Per Week of Alcohol Use: 2 Number of Drinks Per Day: 3 Total Drinks Per Week: 6 - Recreational Drug Use Recreational Drug Use: No Review of Systems - Review of Systems Review Of Systems: ROS reveals no pertinent complaints other than HPI. ED EXAM, GENERAL - Physical Exam Exam: See Below Free Text/Narrative:: This well nourished well muscled pleasant 23yr old woman has moderate pain in her dominant right dorsum of wrist (mostly over the dorsum of the hand - and the distal ulnar head and dorsal rdial-carpal ligaments and the tendons dorsal to the carpal bones:capitate, lunate, triquetrum, Eye Exam: Bilateral Eye: Normal Inspection Ears: Normal External Exam Ear Exam: Bilateral Ear: Auricle Normal, Canal Normal, TM normal Nose: Normal Inspection Throat/Mouth: Normal Inspection, Normal Lips, Normal Teeth, Normal Gums, Normal Oropharynx Head: Atraumatic, Normocephalic Respiratory/Chest: No Respiratory Distress, Normal Breath Sounds, No Accessory Muscle Use, Chest Non-Tender Cardiovascular: Normal Peripheral Pulses, Regular Rate, Rhythm, No Edema, No Gallop, No JVD, No Murmur, No Rub Peripheral Pulses: 1+: Brachial (L), Brachial (R) GI/Abdominal: Normal Bowel Sounds, Soft, Non-Tender, No Organomegaly, No Distention (Female) Exam: Deferred Rectal (Female) Exam: Deferred Back Exam: Normal Inspection Extremities: Arm Pain, Limited Range of Motion, Other (paiin mild swelling, superficial abrasion dorsum of the hand overthe capitate, lunate and triquetrum , no scaphoid pain no snuff box pain andmild decreased rom seconadry tothe contusionof the dorsum soft tissue structures) Neurological: Alert, Oriented, CN II-XII Intact, Normal Cognition, Normal Gait, Normal Reflexes, No Motor/Sensory Deficits Psychiatric: Normal Affect Skin Exam: Warm, Dry, Intact, Normal Color Course - Vital Signs Last Recorded V/S: Last Vital Signs Temp 36.8 C 02/16/18 21:35 Pulse 68 02/16/18 21:35 Resp 18 02/16/18 21:35 BP 118/68 02/16/18 21:35 Pulse Ox 100 02/16/18 21:35 Departure - Departure Time of Disposition: 09:30 (contusion of right hand and wrist with pain on dorsiflexion and hdz flexion secondary to ligament and tendon contusion) Disposition: Home, Self-Care 01 Preliminary Cause of *Q: Respiratory Failure Condition: Good Clinical Impression: Soft tissue injury Contusion of hand including fingers Qualifiers: Encounter type: initial encounter Laterality: right Qualified Code(s): S60.221A - Contusion of right hand, initial encounter; S60.00XA - Contusion of unspecified finger without damage to nail, initial encounter Contusion of wrist, right Qualifiers: Encounter type: initial encounter Qualified Code(s): S60.211A - Contusion of right wrist, initial encounter - Discharge Information *PRESCRIPTION DRUG MONITORING PROGRAM REVIEWED*: Not Applicable *COPY OF PRESCRIPTION DRUG MONITORING REPORT IN PATIENT SHA: Not Applicable Instructions: Hand Contusion, [id number] Referrals: Keyur Lopez MD [Primary Care Provider] - Forms: ED Department Discharge Additional Instructions: use the prefabricated splint to diminish the pain Care Plan Goals: USE ICE TO DECREASE SWELLING USE 1000 MG TYLENOL AND 600 MG IBUPROFEN EVERY 6 HOUR TO DECREASE THE PAIN USE A SPLINT TO DECREASE THE PAIN AND MOTION OF THE CONTUSED TENDONS AND LIGAMENTS ON THE DORSUM OF YOUR HAND AND ULNA NO MORE THAT 5 LB MOUNTER WITH THE RIGHT HAND GRADUALLY INCREASE YOUR WORK EFFORT AND LIFTING TOLERATED FOLLOW UP WITH YOUR HEALTH CARE PROVIDER 1 WEEK
== END 2018-02-16 21:45 | disposition home or self-care (01) ==
LOC: FB.ED 21:10
DX: S60.211A Contusion of right wrist, initial encounter (principal); S60.221A Contusion of right hand, initial encounter; S60.00XA Contusion of unspecified finger without damage to nail, initial encounter; F17.210 Nicotine dependence, cigarettes, uncomplicated; W23.0XXA Caught, crushed, jammed, or pinched between moving objects, initial encounter; Z91.048 Other nonmedicinal substance allergy status
CPT/HCPCS: 73130-RT; 99283